=== PATIENT | male | born 1970 | race Caucasian/White ===

== ENCOUNTER 2019-09-19 11:09 | Emergency (ER) | payer BC ==
[2019-09-19] MEDS ORDERED: hydrALAZINE HCL 20 MG/ML 1 ML VIAL IVP STA (11:29)
--- NOTE | 2019-09-19 11:35 | ED ---
General Adult HPI <Inocente Dinero - Last Filed: 09/19/19 13:17> - General Source: patient Mode of arrival: ambulatory Limitations: no limitations <Ifeanyi Hughes - Last Filed: 09/19/19 13:29> - General Chief complaint: Recheck/Abnormal Lab/Rx Stated complaint: Elevated BP Time Seen by Provider: 09/19/19 11:20 - History of Present Illness Initial comments: Patient is a 48-year-old male with history of hypertension is presenting to the emergency department with chief complaint of hypertension. Patient reports 4 days ago he obtained his blood pressure at the pharmacy and it was 260/180. He was advised to see a primary care physician. Patient reports that he does not see a primary care but scheduled appointment and is waiting for his appointment next week. Patient reports today he went to the urgent care and his blood pressure was 280/180 and he was referred to come to the ED for further evaluation. At this time patient denies any shortness of breath, headaches, chest pain, nausea, stomach pain or any blurry vision. Patient reports he was aware of his high blood pressure for the past 3 years however he did not seek any medical attention. Patient states about 3 years. He was seen in the emergency department for elevated blood pressure and was kept overnight but after discharge he never obtain a primary care. Patient is not a smoker. Patient doesn't take any medications. Patient denies one-sided weakness or paresthesias. (Ifeanyi Hughes) - Related Data Previous Rx's Medication Instructions Recorded amLODIPine BESYLATE [Norvasc] 5 mg PO DAILY #20 tablet 09/19/19 Allergies Allergy/AdvReac Type Severity Reaction Status Date / Time No Known Allergies Allergy Verified 09/19/19 11:21 Review of Systems ROS Other: All systems not noted in ROS Statement are negative. <Inocente Dinero - Last Filed: 09/19/19 13:17> ROS Other: All systems not noted in ROS Statement are negative. <Ifeanyi Hughes - Last Filed: 09/19/19 13:29> ROS Statement: Those systems with pertinent positive or pertinent negative responses have been documented in the HPI. Past Medical History Past Medical History: Hypertension History of Any Multi-Drug Resistant Organisms: None Reported Additional Past Surgical History / Comment(s): Lung. Past Psychological History: No Psychological Hx Reported Smoking Status: Never smoker Past Alcohol Use History: Rare Past Drug Use History: Marijuana <Ifeanyi Hughes - Last Filed: 09/19/19 13:29> General Exam Limitations: no limitations General appearance: alert, in no apparent distress Head exam: Present: atraumatic, normocephalic, normal inspection Eye exam: Present: normal appearance, PERRL, EOMI. Absent: other (No optic disc enlargement.) Pupils: Present: normal accommodation ENT exam: Present: normal exam, normal oropharynx, mucous membranes moist, TM's normal bilaterally, normal external ear exam Neck exam: Present: normal inspection, full ROM Respiratory exam: Present: normal lung sounds bilaterally Cardiovascular Exam: Present: regular rate, normal rhythm, normal heart sounds Extremities exam: Present: normal inspection, full ROM, normal capillary refill, other (+2 radial and ulnar pulses bilaterally.). Absent: pedal edema, calf tenderness Back exam: Present: normal inspection, full ROM Neurological exam: Present: alert, oriented X3 Psychiatric exam: Present: normal affect, normal mood Skin exam: Present: warm, intact, normal color <Ifeanyi Hughes - Last Filed: 09/19/19 13:29> Course Vital Signs 09/19/19 09/19/19 09/19/19 11:12 11:36 11:40 Temperature 98 F Pulse Rate 98 89 86 Respiratory 22 23 18 Rate Blood Pressure 256/146 O2 Sat by Pulse 99 97 96 Oximetry 09/19/19 09/19/19 09/19/19 11:50 12:00 12:10 Temperature Pulse Rate 76 81 77 Respiratory 25 H 16 15 Rate Blood Pressure 246/162 246/162 229/143 O2 Sat by Pulse 95 95 96 Oximetry 09/19/19 09/19/19 09/19/19 12:20 12:30 12:40 Temperature Pulse Rate 73 68 71 Respiratory 14 18 28 H Rate Blood Pressure 233/138 233/138 219/145 O2 Sat by Pulse 94 L 94 L 93 L Oximetry 09/19/19 09/19/19 12:50 13:00 Temperature Pulse Rate 70 70 Respiratory 8 L 19 Rate Blood Pressure 206/135 206/135 O2 Sat by Pulse 95 94 L Oximetry EKG Findings - EKG Comments: EKG Findings:: Normal sinus rhythm, left axis deviation, lead 1 and inverted T waves, ST elevation in V2 through V3. <Ifeanyi Hughes - Last Filed: 09/19/19 13:29> Medical Decision Making - Lab Data Result diagrams: 09/19/19 11:36 09/19/19 11:36 <Inocente Dinero - Last Filed: 09/19/19 13:17> - Lab Data Result diagrams: 09/19/19 11:36 09/19/19 11:36 <Ifeanyi Hughes - Last Filed: 09/19/19 13:29> - Medical Decision Making Patient is a 48-year-old male presenting to the emergency department with chief complaint of hypertension. Patient has been aware of his elevated blood pressure, however he has not seek any medical care. Currently patient is completely asymptomatic. EKG does show left axis deviation and some inverted T waves in V1. UA does show +3 protein and some blood. Patient has elevated BUN and creatinine with a GFR of 48. I suspect the decreased renal function to be result of persistent, elevated blood pressure. Patient reports he has an appointment scheduled with Dr. Preciado exactly a week from today. spoke with Dr. Preciado in order to have his appointment moved for tomorrow. Dr. Preciado wanted to admit the patient, however the patient refused and will sign out AMA. Patient will be discharged with [facility] until he is able to evaluated by Dr. Preciado. Strict return parameters were thoroughly discussed with patient was ascending and agreeable. Case discussed physician. (Ifeanyi Hughes) - Lab Data Lab Results 09/19/19 09/19/19 09/19/19 Range/Units 11:36 11:36 11:36 WBC 5.1 (3.8-10.6) k/uL RBC 5.69 (4.30-5.90) m/uL Hgb 16.9 (13.0-17.5) gm/dL Hct 48.3 (39.0-53.0) % MCV 84.8 (80.0-100.0) fL MCH 29.7 (25.0-35.0) pg MCHC 35.0 (31.0-37.0) g/dL RDW 13.5 (11.5-15.5) % Plt Count 194 (150-450) k/uL Neutrophils % 64 % Lymphocytes % 24 % Monocytes % 6 % Eosinophils % 3 % Basophils % 1 % Neutrophils # 3.3 (1.3-7.7) k/uL Lymphocytes # 1.2 (1.0-4.8) k/uL Monocytes # 0.3 (0-1.0) k/uL Eosinophils # 0.2 (0-0.7) k/uL Basophils # 0.1 (0-0.2) k/uL PT (9.0-12.0) sec INR (<1.2) APTT (22.0-30.0) sec Sodium 138 (137-145) mmol/L Potassium 4.1 (3.5-5.1) mmol/L Chloride 104 (98-107) mmol/L Carbon Dioxide 22 (22-30) mmol/L Anion Gap 12 mmol/L BUN 30 H (9-20) mg/dL Creatinine 1.65 H (0.66-1.25) mg/dL Est GFR (CKD-EPI)AfAm 56 (>60 ml/min/1.73 sqM) Est GFR (CKD-EPI)NonAf 48 (>60 ml/min/1.73 sqM) Glucose 93 (74-99) mg/dL Calcium 9.6 (8.4-10.2) mg/dL Magnesium 2.1 (1.6-2.3) mg/dL Total Bilirubin 1.1 (0.2-1.3) mg/dL AST 31 (17-59) U/L ALT 25 (21-72) U/L Alkaline Phosphatase 61 (38-126) U/L Troponin I (0.000-0.034) ng/mL Total Protein 8.2 (6.3-8.2) g/dL Albumin 4.9 (3.5-5.0) g/dL Urine Color Yellow Urine Appearance Clear (Clear) Urine pH 5.5 (5.0-8.0) Ur Specific [place] 1.025 (1.001-1.035) Urine Protein 3+ H (Negative) Urine Glucose (UA) Negative (Negative) Urine Ketones Negative (Negative) Urine Blood Small H (Negative) Urine Nitrite Negative (Negative) Urine Bilirubin Negative (Negative) Urine Urobilinogen <2.0 (<2.0) mg/dL Ur Leukocyte Esterase Negative (Negative) Urine RBC 1 (0-5) /hpf Urine WBC 1 (0-5) /hpf Ur Squamous Epith Cells <1 (0-4) /hpf Hyaline Casts 4 H (0-2) /lpf Urine Mucus Occasional H (None) /hpf 09/19/19 09/19/19 Range/Units 11:36 11:36 WBC (3.8-10.6) k/uL RBC (4.30-5.90) m/uL Hgb (13.0-17.5) gm/dL Hct (39.0-53.0) % MCV (80.0-100.0) fL MCH (25.0-35.0) pg MCHC (31.0-37.0) g/dL RDW (11.5-15.5) % Plt Count (150-450) k/uL Neutrophils % % Lymphocytes % % Monocytes % % Eosinophils % % Basophils % % Neutrophils # (1.3-7.7) k/uL Lymphocytes # (1.0-4.8) k/uL Monocytes # (0-1.0) k/uL Eosinophils # (0-0.7) k/uL Basophils # (0-0.2) k/uL PT 10.6 (9.0-12.0) sec INR 1.0 (<1.2) APTT 27.1 (22.0-30.0) sec Sodium (137-145) mmol/L Potassium (3.5-5.1) mmol/L Chloride (98-107) mmol/L Carbon Dioxide (22-30) mmol/L Anion Gap mmol/L BUN (9-20) mg/dL Creatinine (0.66-1.25) mg/dL Est GFR (CKD-EPI)AfAm (>60 ml/min/1.73 sqM) Est GFR (CKD-EPI)NonAf (>60 ml/min/1.73 sqM) Glucose (74-99) mg/dL Calcium (8.4-10.2) mg/dL Magnesium (1.6-2.3) mg/dL Total Bilirubin (0.2-1.3) mg/dL AST (17-59) U/L ALT (21-72) U/L Alkaline Phosphatase (38-126) U/L Troponin I 0.034 (0.000-0.034) ng/mL Total Protein (6.3-8.2) g/dL Albumin (3.5-5.0) g/dL Urine Color Urine Appearance (Clear) Urine pH (5.0-8.0) Ur Specific [place] (1.001-1.035) Urine Protein (Negative) Urine Glucose (UA) (Negative) Urine Ketones (Negative) Urine Blood (Negative) Urine Nitrite (Negative) Urine Bilirubin (Negative) Urine Urobilinogen (<2.0) mg/dL Ur Leukocyte Esterase (Negative) Urine RBC (0-5) /hpf Urine WBC (0-5) /hpf Ur Squamous Epith Cells (0-4) /hpf Hyaline Casts (0-2) /lpf Urine Mucus (None) /hpf Disposition <Inocente Dinero - Last Filed: 09/19/19 13:17> Is patient prescribed a controlled substance at d/c from ED?: No Time of Disposition: 13:29 <Ifeanyi Hughes - Last Filed: 09/19/19 13:29> Clinical Impression: Hypertension Disposition: Left Against Medical Advice Condition: Stable Instructions (If sedation given, give patient instructions): Heart Healthy Diet (DC), Hypertensive Crisis (ED) Additional Instructions: Please take prescribed medication as directed. Please follow-up with Dr. Preciado. Please return to emergency department if symptoms worsen. Prescriptions: amLODIPine BESYLATE [Norvasc] 5 mg PO DAILY #20 tablet Referrals: Ileana Preciado MD [Primary Care Provider] - 1-2 days
[2019-09-19] MEDS: LABETALOL 5 MG/ML VIAL MDV IVP SCH ×4 (11:59→13:04)
[2019-09-19 12:13] LABS: Appearance,Urine Clear (Clear); Bilirubin,Urine Negative (Negative); Blood,Urine Small (Negative); Color,Urine Yellow; Glucose,Urine (UA) Negative (Negative); Hyaline Casts,Urine 4 /lpf (0-2); Ketones,Urine Negative (Negative); Leukocyte Esterase,Urine Negative (Negative); Mucus,Urine Occasional /hpf; Nitrite,Urine Negative (Negative); PH, Urine 5.5 (5.0-8.0); Partial Thromboplastin Time 27.1 sec (22.0-30.0); Protein,Urine 3+ (Negative); Prothrombin Time 10.6 sec (9.0-12.0); RBC,Urine 1 /hpf (0-5); Specific Gravity,Urine 1.025 (1.001-1.035); Squamous Epithelial Cell,Urine <1 /hpf (0-4); Urobilinogen,Urine <2.0 mg/dL (<2.0); WBC,Urine 1 /hpf (0-5)
[2019-09-19 12:17] LABS: Basophils # (A) 0.1 k/uL (0-0.2); Basophils % (A) 1 %; Eosinophils # (A) 0.2 k/uL (0-0.7); Eosinophils % (A) 3 %; HCT 48.3 % (39.0-53.0); HGB 16.9 gm/dL (13.0-17.5); Lymphocytes # (A) 1.2 k/uL (1.0-4.8); Lymphocytes % (A) 24 %; MCH 29.7 pg (25.0-35.0); MCV 84.8 fL (80.0-100.0); Monocytes # (A) 0.3 k/uL (0-1.0); Monocytes % (A) 6 %; Neutrophils # (A) 3.3 k/uL (1.3-7.7); Neutrophils % (A) 64 %; Platelet Count 194 k/uL (150-450); RBC 5.69 m/uL (4.30-5.90); RDW 13.5 % (11.5-15.5); WBC 5.1 k/uL (3.8-10.6)
[2019-09-19 12:27] LABS: Albumin 4.9 g/dL (3.5-5.0); Calcium 9.6 mg/dL (8.4-10.2); Magnesium 2.1 mg/dL (1.6-2.3); Potassium 4.1 mmol/L (3.5-5.1); Total Bilirubin 1.1 mg/dL (0.2-1.3); Total Protein 8.2 g/dL (6.3-8.2)
[2019-09-19] MEDS ORDERED: cloNIDine HCL 0.1 MG TAB PO STA (13:16)
[2019-09-19 13:50] VITALS: BP 214/149; PULSE 68; RESP 18; TEMP 98.1
== END 2019-09-19 13:30 | disposition left against medical advice (07) ==
LOC: EC 11:09
DX: I10 Essential (primary) hypertension (principal)
CPT/HCPCS: 36415; 80053; 81001; 83735; 84484; 85025; 85610; 85730; 93005; 96374; 99283

== ENCOUNTER 2020-07-13 12:54 | Observation (INO) | payer BC, OTHER ==
--- NOTE | 2020-07-13 13:06 | ED ---
General Adult HPI - General Stated complaint: High BP STEMI Time Seen by Provider: 07/13/20 13:00 Source: patient, RN/MD, EMS, RN notes reviewed, old records reviewed Mode of arrival: EMS Limitations: no limitations - History of Present Illness Initial comments: This is a 49-year-old male who was transferred from [facility] today where he presented for concern for high blood pressure for about a week he had been dealing with a frontal headache some dizziness and low energy levels. He had no chest pain palpitations diaphoresis or nausea he currently was on hydralazine and Norvasc for refractory hypertension. No other current medical history. He did have lung surgery as a child. The patient's troponin was noted to be mildly elevated at 0.043. Patient did have some T-wave inversions that were noted on his EKG with no old one for comparison. He currently is having no chest pain no symptoms at all no headache blurry vision nausea vomiting. He was transferred here for cardiac evaluation. - Related Data Previous Rx's Medication Instructions Recorded amLODIPine BESYLATE [Norvasc] 5 mg PO DAILY #20 tablet 09/19/19 Allergies Allergy/AdvReac Type Severity Reaction Status Date / Time No Known Allergies Allergy Verified 07/13/20 13:02 Review of Systems ROS Statement: Those systems with pertinent positive or pertinent negative responses have been documented in the HPI. ROS Other: All systems not noted in ROS Statement are negative. Past Medical History Past Medical History: Hypertension History of Any Multi-Drug Resistant Organisms: None Reported Additional Past Surgical History / Comment(s): Lung. Past Psychological History: No Psychological Hx Reported Smoking Status: Former smoker Past Alcohol Use History: Rare Past Drug Use History: Marijuana General Exam - General Exam Comments Initial Comments: This is a well-developed well-nourished awake alert oriented times 3 male Limitations: no limitations General appearance: alert, in no apparent distress Head exam: Present: atraumatic, normocephalic, normal inspection Eye exam: Present: normal appearance, PERRL, EOMI. Absent: scleral icterus, conjunctival injection, periorbital swelling ENT exam: Present: normal exam, mucous membranes moist Neck exam: Present: normal inspection. Absent: tenderness, meningismus, lymphadenopathy Respiratory exam: Present: normal lung sounds bilaterally. Absent: respiratory distress, wheezes, rales, rhonchi, stridor Cardiovascular Exam: Present: regular rate, normal rhythm, normal heart sounds. Absent: systolic murmur, diastolic murmur, rubs, gallop, clicks GI/Abdominal exam: Present: soft, normal bowel sounds. Absent: distended, tenderness, guarding, rebound, rigid Extremities exam: Present: normal inspection, full ROM, normal capillary refill. Absent: tenderness, pedal edema, joint swelling, calf tenderness Back exam: Present: normal inspection Neurological exam: Present: alert, oriented X3, CN II-XII intact Psychiatric exam: Present: normal affect, normal mood Skin exam: Present: warm, dry, intact, normal color. Absent: rash Course Vital Signs 07/13/20 12:59 Temperature 98.2 F Pulse Rate 73 Respiratory 18 Rate Blood Pressure 196/117 O2 Sat by Pulse 96 Oximetry EKG Findings - EKG Results: EKG: interpreted by BAY, sinus rhythm (Sinus rhythm at 66. Ago 188 QRS duration 100 QT since QTC 438/459 evidence of left anterior fascicular block LVH nonspecific inferior changes this compares to that presented from [facility] earlier today.) Medical Decision Making - Medical Decision Making Did review the documents sent with the patient. Patient does have T-wave inversions as PVC noted in the lateral leads. Patient will be admitted with cardiology consultation. The case is discussed with Dr. Camacho. Repeat troponin Disposition Clinical Impression: Acute coronary syndrome, Elevated troponin, Hypertension, Acute electrocardiogram changes Disposition: ADMITTED IP TO THIS [facility] Condition: Fair Referrals: Ileana Preciado MD [Primary Care Provider] - 1-2 days
[2020-07-13] MEDS ORDERED: NITROGLYCERIN SL TABS 0.4 MG TAB SUBLINGUAL PRN (13:34)
[2020-07-13] MEDS ORDERED: NITROGLYCERIN OINT 1 INCH/GM PACKET TOPICAL STA (13:37)
[2020-07-13] MEDS ORDERED: HEPARIN SOD,PORK IN 0.45% NACL 25,000 UNIT in 0.45% NACL 1 250ML.BAG IV SCH (13:45)
[2020-07-13] MEDS: SODIUM CHLORIDE 0.9% 1,000 ML IV SCH (14:05)
[2020-07-13] MEDS: NITROGLYCERIN OINT 1 INCH/GM PACKET TOPICAL SCH ×2 (17:34→22:50)
--- NOTE | 2020-07-13 21:01 | P.HPIM ---
History of Present Illness This is a pleasant 49 years old male with past medical history of hypertension. He is a patient of Dr. Preciado. He works as a lab. Patient has been coming from lightheadedness with generalized weakness and no energy whenever he tries to do something he got tired easily, patient was checking his blood pressure by himself and he noticed it is 200+/100+, so he called his primary care doctor Ozzy who referred him to the hospital. I told patient was on Norvasc and hydralazine by his PCP. Patient denies chest pain, no dyspnea, no coughing, no syncope, no palpitation. No abdominal complaints. Patient has been urinating frequently every 1 hour during the night and Lasix during the day He denies a smoking, no alcohol, no illicit On admission his blood pressure was 196/117, currently 167/105. rest of are stable EKG showing normal sinus rhythm at 66 bpm with no significant ST-T changes and LVH. QTC is 459 Review of Systems CONSTITUTIONAL: No fever, no malaise, no fatigue. HEENT: No recent visual problems or hearing problems. Denied any sore throat. CARDIOVASCULAR: No orthopnea, PND, no palpitations, no syncope. PULMONARY: No shortness of breath, no cough, no hemoptysis. GASTROINTESTINAL: No diarrhea, no nausea, no vomiting, no abdominal pain. Normoactive bowel sounds. NEUROLOGICAL: No headaches, no weakness, no numbness. HEMATOLOGICAL: Denies any bleeding or petechiae. GENITOURINARY: Denies any burning micturition, frequency, or urgency. MUSCULOSKELETAL/RHEUMATOLOGICAL: Denies any joint pain, swelling, or any muscle pain. ENDOCRINE: Denies any polyuria or polydipsia. Past Medical History Past Medical History: Hypertension History of Any Multi-Drug Resistant Organisms: None Reported Additional Past Surgical History / Comment(s): Lung 2-3 years old Past Psychological History: No Psychological Hx Reported Smoking Status: Never smoker Past Alcohol Use History: Rare Past Drug Use History: Marijuana - Past Family History Father Family Medical History: Hypertension Mother Additional Family Medical History / Comment(s): , not sure of history Medications and Allergies Home Medications Medication Instructions Recorded Confirmed Type amLODIPine [Norvasc] 10 mg PO DAILY 07/13/20 07/13/20 History hydrALAZINE HCL 25 mg PO TID-W/MEALS 07/13/20 07/13/20 History Allergies Allergy/AdvReac Type Severity Reaction Status Date / Time No Known Allergies Allergy Verified 07/13/20 14:56 Physical Exam Vitals: Vital Signs Temp Pulse Resp BP Pulse Ox 07/13/20 14:30 66 18 167/105 97 07/13/20 14:00 64 18 167/110 98 07/13/20 13:41 68 18 191/109 97 07/13/20 12:59 98.2 F 73 18 196/117 96 Intake and Output 07/13/20 07/13/20 07/13/20 06:59 14:59 22:59 Other: Weight 72.575 kg GENERAL: The patient is alert and oriented x3, not in any acute distress. Well developed, well nourished. HEENT: Pupils are round and equally reacting to light. EOMI. No scleral icterus. No conjunctival pallor. Normocephalic, atraumatic. No pharyngeal erythema. No thyromegaly. CARDIOVASCULAR: S1 and S2 present. No murmurs, rubs, or gallops. PULMONARY: Chest is clear to auscultation, no wheezing or crackles. ABDOMEN: Soft, nontender, nondistended, normoactive bowel sounds. No palpable organomegaly. MUSCULOSKELETAL: No joint swelling or deformity. EXTREMITIES: No cyanosis, clubbing, or pedal edema. NEUROLOGICAL: Gross neurological examination did not reveal any focal deficits. SKIN: No rashes. No petechiae Results Labs: Abnormal Lab Results - Last 24 Hours (Table) 07/13/20 Range/Units 13:46 Troponin I 0.039 H* (0.000-0.034) ng/mL Assessment and Plan Assessment: Elevated troponin, suspicious for cardiac disease. non-STEMI Hypertension, uncontrolled with urgency Generalized weakness and fatigue, secondary to above Plan: this is a pleasant 49 years old male who presents with uncontrolled hypertension and elevated troponin. Continue with heparin drip. Continue with aspirin. Serial troponin, cardiology consult. Continue with beta chacha and Norvasc 5 mg daily increased to twice a day. Also will add Imdur 30 mg daily. Check echocardiogram. Also we will check labs. Check chest x-ray Monitor blood pressure closely We will check urine analysis and hemoglobin A1c Labs and medication were reviewed.. Continue same treatment. Continue with symptomatic treatment. Resume home medication. Monitor lytes and vitals. DVT and GI prophylaxis. Further recommendations of the clinical course of the patient DVT prophylaxis: Subcutaneous heparin GI Prophylaxis: Pepcid Prognosis is guarded
[2020-07-13] MEDS: ISOSORBIDE MONONITRATE ER 30 MG TAB.ER.24H PO SCH (21:50)
[2020-07-13] MEDS: amLODIPine 5 MG TAB PO SCH (21:50)
[2020-07-14 02:21] LABS: Basophils # (A) 0.1 k/uL (0-0.2); Basophils % (A) 3 %; Eosinophils # (A) 0.2 k/uL (0-0.7); Eosinophils % (A) 4 %; HCT 46.7 % (39.0-53.0); HGB 15.5 gm/dL (13.0-17.5); Lymphocytes # (A) 1.7 k/uL (1.0-4.8); Lymphocytes % (A) 33 %; MCH 29.2 pg (25.0-35.0); MCHC 33.3 g/dL (31.0-37.0); MCV 87.9 fL (80.0-100.0); Mean Platelet Volume 7.4; Monocytes # (A) 0.3 k/uL (0-1.0); Monocytes % (A) 5 %; Neutrophils # (A) 2.7 k/uL (1.3-7.7); Neutrophils % (A) 52 %; Platelet Count 185 k/uL (150-450); RBC 5.31 m/uL (4.30-5.90); RDW 13.1 % (11.5-15.5); WBC 5.2 k/uL (3.8-10.6)
[2020-07-14 02:35] LABS: INR 1.1 (<1.2); Prothrombin Time 10.9 sec (9.0-12.0)
[2020-07-14 02:56] LABS: Albumin 3.9 g/dL (3.5-5.0); Bilirubin, Delta 0.2 mg/dL (0.0-0.2); Bilirubin,Unconjugated 0.5 mg/dL (0.0-1.1); Calcium 8.8 mg/dL (8.4-10.2); Magnesium 2.2 mg/dL (1.6-2.3); Potassium 4.1 mmol/L (3.5-5.1); Total Bilirubin 0.7 mg/dL (0.2-1.3); Total Protein 6.3 g/dL (6.3-8.2)
[2020-07-14] MEDS: NITROGLYCERIN OINT 1 INCH/GM PACKET TOPICAL SCH ×3 (05:52→17:11)
--- NOTE | 2020-07-14 06:51 | XR ---
EXAMINATION TYPE: XR chest 2V DATE OF EXAM: 07/14/2020 COMPARISON: Outside chest x-ray from yesterday. HISTORY: Hypertension with lightheadedness. TECHNIQUE: Frontal and lateral views of the chest are obtained. FINDINGS: There is chronic parenchymal change with small to tiny right pleural effusion redemonstrat ed. No suspicious focal airspace opacity or pneumothorax seen bilaterally. The cardiac silhouette si ze remains within normal limits without change in the aortic knob. The osseous structures are intac t. Overlying EKG leads are on current study. IMPRESSION: Chronic parenchymal change with small to tiny right pleural effusion. No significant manjinder nge from one day earlier.
[2020-07-14] MEDS ORDERED: amLODIPine 5 MG TAB PO SCH (09:00)
[2020-07-14] MEDS ORDERED: lisinopriL 5 MG TAB PO SCH (09:00)
[2020-07-14] MEDS: amLODIPine 5 MG TAB PO SCH ×2 (09:02→20:48)
[2020-07-14] MEDS: ISOSORBIDE MONONITRATE ER 30 MG TAB.ER.24H PO SCH (09:02)
[2020-07-14] MEDS: ASPIRIN 325 MG TAB PO SCH (09:02)
--- NOTE | 2020-07-14 11:39 | P.CRDCN ---
History of Present Illness Consult date: 07/14/20 History of present illness: CHIEF COMPLAINT: elevated troponins HISTORY OF PRESENT ILLNESS: 49-year-old male with a history of hypertension who presented to the emergency room after checking his blood pressure home and it was found to be 200s/100s. Patient called his primary care physician who directed the patient to come to the emergency room. Patient states he does not see a rn visiting on an outpatient basis. patient reports his grandma had a history of coronary artery disease with a stent placement when she was in her 70s. Denies any other family cardiac history. Patient reports feeling lightheaded, weak, and having low energy levels recently. He denies any chest pain or shortness of breath. DIAGNOSTICS: EKG reveals sinus rhythm Chest xray chronic parenchymal changes with small to tiny right pleural effusion. Laboratory data: WBC 5.2. Hemoglobin 15.5. Pletal 185. Sodium 140. Potassium 4.1. BUN 25. creatinine 1.24. Magnesium 2.2. troponin 0.039. 0.035. 0.033. Current home cardiac medications include Norvasc 10 mg daily and hydralazine 25 mg 3 times a day. REVIEW OF SYSTEMS: CONSTITUTIONAL: Denies fever or chills. reports weakness and low energy levels at home. HEENT: Denies blurred vision, vision changes, or eye pain. Denies hemoptysis CARDIOVASCULAR: Denies chest pain, orthopnea, PND or palpitations RESPIRATORY: No shortness of breath. GASTROINTESTINAL: Denies abdominal pain. Denies nausea or vomiting. HEMATOLOGIC: Denies bleeding disorders. GENITOURINARY: Denies any blood in urine. SKIN: Denies pruitis. Denies rash. PHYSICAL EXAM: VITAL SIGNS: Reviewed. GENERAL: Well-developed in no acute distress. HEENT: Head is normocephalic. Pupils are equal, round. Sclerae anicteric. Mucous membranes of the mouth are moist. Neck supple. No JVD or thyromegaly LUNGS: Respirations even and unlabored. Lungs essentially clear to auscultation bilaterally. HEART: Regular rate and rhythm. S1 and S2 heard. ABDOMEN: Soft. Nontender. EXTREMITIES: Normal range of motion. No clubbing or cyanosis. Peripheral pulses intact. No lower extremity edema NEUROLOGIC: Awake and alert. Oriented x 3. ASSESSMENT: 1. Hypertension, uncontrolled 2. Elevated troponins PLAN: -Continue Norvasc and hydralazine -Imdur added per internal medicine -Will add lisinopril 5 mg daily for optimal blood pressure control -Obtain 2-D echo to assess cardiac structure and function -Possible stress test versus cardiac catheterization pending echocardiogram results Nurse practitioner note has been reviewed by physician. Signing provider agrees with the documented findings, assessment, and plan of care. Past Medical History Past Medical History: Hypertension History of Any Multi-Drug Resistant Organisms: None Reported Additional Past Surgical History / Comment(s): Lung 2-3 years old Past Psychological History: No Psychological Hx Reported Smoking Status: Never smoker Past Alcohol Use History: Rare Past Drug Use History: Marijuana - Past Family History Father Family Medical History: Hypertension Mother Additional Family Medical History / Comment(s): , not sure of history Medications and Allergies Home Medications Medication Instructions Recorded Confirmed Type amLODIPine [Norvasc] 10 mg PO DAILY 07/13/20 07/13/20 History hydrALAZINE HCL 25 mg PO TID-W/MEALS 07/13/20 07/13/20 History Allergies Allergy/AdvReac Type Severity Reaction Status Date / Time No Known Allergies Allergy Verified 07/13/20 14:56 Physical Exam Vitals: Vital Signs Temp Pulse Pulse Resp BP BP Pulse Ox 07/14/20 11:29 59 L 16 159/95 97 07/14/20 08:00 98.2 F 65 16 204/93 97 07/14/20 03:54 97.9 F 51 L 18 168/92 98 07/14/20 00:00 97.5 F L 54 L 19 182/92 97 07/13/20 20:00 98.2 F 61 19 158/88 97 07/13/20 15:20 98.1 F 69 16 170/107 96 07/13/20 14:30 66 18 167/105 97 07/13/20 14:00 64 18 167/110 98 07/13/20 13:41 68 18 191/109 97 07/13/20 12:59 98.2 F 73 18 196/117 96 Intake and Output 07/13/20 07/14/20 07/14/20 22:59 06:59 14:59 Intake Total 306.341 58.966 Balance 306.341 58.966 Intake: Intake, IV Titration 66.341 58.966 Amount Heparin Sod,Pork in 0.45% 66.341 58.966 NaCl 25,000 unit In 0.45 % NaCl 1 250ml.bag @ 12 UNITS/KG/HR 8.709 mls/hr IV .Q24H [facility] Rx#: [id number] Oral 240 Other: Voiding Method Toilet Toilet Urinal Urinal # Voids 1 1 Weight 74.2 kg 84.5 kg Results 07/14/20 02:06 07/14/20 02:06 Cardiac Enzymes 07/13/20 07/13/20 07/13/20 Range/Units 13:46 16:26 19:49 AST (17-59) U/L Troponin I 0.039 H* 0.035 H* 0.033 (0.000-0.034) ng/mL 07/14/20 Range/Units 02:06 AST 22 (17-59) U/L Troponin I (0.000-0.034) ng/mL Coagulation 07/13/20 07/14/20 07/14/20 Range/Units 19:49 02:06 02:06 PT 10.9 (9.0-12.0) sec APTT 31.3 H 41.2 H (22.0-30.0) sec 07/14/20 Range/Units 09:11 PT (9.0-12.0) sec APTT 49.1 H (22.0-30.0) sec Lipids 07/14/20 Range/Units 02:06 Triglycerides 84 (<150) mg/dL Cholesterol 185 (<200) mg/dL HDL Cholesterol 60 (40-60) mg/dL CBC 07/14/20 Range/Units 02:06 WBC 5.2 (3.8-10.6) k/uL RBC 5.31 (4.30-5.90) m/uL Hgb 15.5 (13.0-17.5) gm/dL Hct 46.7 (39.0-53.0) % Plt Count 185 (150-450) k/uL Comprehensive Metabolic Panel 07/14/20 Range/Units 02:06 Sodium 140 (137-145) mmol/L Potassium 4.1 (3.5-5.1) mmol/L Chloride 106 (98-107) mmol/L Carbon Dioxide 28 (22-30) mmol/L BUN 25 H (9-20) mg/dL Creatinine 1.24 (0.66-1.25) mg/dL Glucose 92 (74-99) mg/dL Calcium 8.8 (8.4-10.2) mg/dL Unconjugated Bilirubin 0.5 (0.0-1.1) mg/dL AST 22 (17-59) U/L ALT 21 (4-49) U/L Alkaline Phosphatase 44 (38-126) U/L Total Protein 6.3 (6.3-8.2) g/dL Albumin 3.9 (3.5-5.0) g/dL Current Medications Generic Name Dose Route Start Last Admin Trade Name Freq PRN Reason Stop Dose Admin Amlodipine Besylate 5 mg 07/13/20 21:00 07/14/20 09:02 Norvasc PO 5 mg BID ROSIE Administration Aspirin 325 mg 07/14/20 09:00 07/14/20 09:02 Aspirin PO 325 mg DAILY ROSIE Administration Sodium Chloride 1,000 mls @ 20 mls/hr 07/13/20 13:45 07/13/20 14:05 Saline 0.9% IV 20 mls/hr .Q24H ROSIE Administration Heparin Sodium/Sodium Chloride 250 mls @ 8.709 mls/hr 07/13/20 13:45 07/14/20 03:07 25,000 unit/ Sodium Chloride IV 17 units/kg/hr .Q24H ROSIE 12.338 mls/hr Titration Protocol 12 UNITS/KG/HR Isosorbide Mononitrate 30 mg 07/13/20 21:00 07/14/20 09:02 Imdur PO 30 mg DAILY ROSIE Administration Lisinopril 5 mg 07/14/20 09:00 07/14/20 09:02 Zestril PO 5 mg DAILY ROSIE Administration Nitroglycerin 0.4 mg 07/13/20 13:34 Nitrostat SUBLINGUAL Q5M PRN Chest Pain Nitroglycerin 1 inch 07/13/20 18:00 07/14/20 05:52 Nitro-Bid Oint TOPICAL Not Given Q6HR ROSIE Intake and Output 07/13/20 07/14/20 07/14/20 22:59 06:59 14:59 Intake Total 306.341 58.966 Balance 306.341 58.966 Intake: Intake, IV Titration 66.341 58.966 Amount Heparin Sod,Pork in 0.45% 66.341 58.966 NaCl 25,000 unit In 0.45 % NaCl 1 250ml.bag @ 12 UNITS/KG/HR 8.709 mls/hr IV .Q24H [facility] Rx#: [id number] Oral 240 Other: Voiding Method Toilet Toilet Urinal Urinal # Voids 1 1 Weight 74.2 kg 84.5 kg 07/14/20 02:06 07/14/20 02:06
[2020-07-14 11:49] LABS: Appearance,Urine Clear (Clear); Bilirubin,Urine Negative (Negative); Blood,Urine Negative (Negative); Color,Urine Yellow; Glucose,Urine (UA) Negative (Negative); Ketones,Urine Negative (Negative); Leukocyte Esterase,Urine Negative (Negative); Nitrite,Urine Negative (Negative); PH, Urine 6.5 (5.0-8.0); Protein,Urine Trace (Negative); Specific Gravity,Urine 1.023 (1.001-1.035); Urobilinogen,Urine <2.0 mg/dL (<2.0)
[2020-07-14] MEDS ORDERED: lisinopriL 5 MG TAB PO STA (12:21)
[2020-07-14] MEDS ORDERED: cloNIDine HCL 0.1 MG TAB PO STA (12:22)
--- NOTE | 2020-07-14 12:30 | ECHOF ---
Referral Reason:elevated troponin MEASUREMENTS -------- HEIGHT: 177.8 cm WEIGHT: 84.4 kg BP: 168/92 RVIDd: 4.2 cm (< 3.3) IVSd: 1.6 cm (0.6 - 1.1) LVIDd: 4.7 cm (3.9 - 5.3) LVPWd: 1.9 cm (0.6 - 1.1) IVSs: 2.4 cm LVIDs: 3.2 cm LVPWs: 2.2 cm LAESV Index (A-L): 43.14 ml/m Ao Diam: 3.6 cm (2.0 - 3.7) AV Cusp: 2.4 cm (1.5 - 2.6) MV EXCURSION: 18.395 mm (> 18.000) MV EF SLOPE: 95 mm/s (70 - 150) EPSS: 0.4 cm MV E Steve: 0.66 m/s MV DecT: 226 ms MV A Steve: 0.71 m/s MV E/A Ratio: 0.93 RAP: 5.00 mmHg RVSP: 28.43 mmHg FINDINGS -------- Sinus rhythm. This was a technically good study. The left ventricular size is normal. There is moderate concentric left ventricular hypertrophy. O verall left ventricular systolic function is normal with, an EF between 55 - 60 %. The diastolic fi lling pattern is normal for the age of the patient 12.78. The right ventricle is severely enlarged. LA is severely dilated >40 ml/m2 The right atrial size is normal. Interatrial and interventricular septum intact. The aortic valve is trileaflet, and appears structurally normal. No aortic stenosis or regurgitation. The mitral valve is normal. There is trace to mild mitral regurgitation. The tricuspid valve appears structurally normal. Mild tricuspid regurgitation present. There is n o evidence of pulmonary hypertension. The right ventricular systolic pressure, as measured by Doppl er, is 28.43mmHg. There is no pulmonic regurgitation present. The aortic root size is normal. The inferior vena cava is mildly dilated. There is no pericardial effusion. CONCLUSIONS -------- 1. There is moderate concentric left ventricular hypertrophy. 2. Overall left ventricular systolic function is normal with, an EF between 55 - 60 %. 3. The diastolic filling pattern is normal for the age of the patient 12.78 4. The right ventricle is severely enlarged. 5. LA is severely dilated >40 ml/m2 6. The aortic valve is trileaflet, and appears structurally normal. No aortic stenosis or regurgitati on. 7. There is trace to mild mitral regurgitation. 8. Mild tricuspid regurgitation present. 9. The inferior vena cava is mildly dilated. DIALYSIS REGISTERED NURSE: Shey Lee RDCS
[2020-07-14 13:26] LABS: Hemoglobin A1C 5.3 % (4.0-6.0)
--- NOTE | 2020-07-14 15:55 | P.PN ---
Subjective Progress Note Date: 07/14/20 Principal diagnosis: This is a pleasant 49 years old male with past medical history of hypertension. He is a patient of Dr. Preciado. He works as a lab. Patient has been coming from lightheadedness with generalized weakness and no energy whenever he tries to do something he got tired easily, patient was checking his blood pressure by himself and he noticed it is 200+/100+, so he called his primary care doctor Ozzy who referred him to the hospital. I told patient was on Norvasc and hydralazine by his PCP. Patient denies chest pain, no dyspnea, no coughing, no syncope, no palpitation. No abdominal complaints. Patient has been urinating frequently every 1 hour during the night and Lasix during the day He denies a smoking, no alcohol, no illicit On admission his blood pressure was 196/117, currently 167/105. rest of are stable EKG showing normal sinus rhythm at 66 bpm with no significant ST-T changes and LVH. QTC is 459 07/14/2020 Patient is seen and evaluated and follow-up currently undergoing an echo. 2-D echo shows overall ventricular systolic function is normal with an EF between 55 and 60% along with a trace to mild mitral regurgitation and mild tricuspid regurgitation present. Scheduled to undergo a stress test although blood pressure continues to be elevated and was rescheduled for tomorrow. Patient currently remains on Norvasc 5 mg twice daily and lisinopril and Imdur was initiated. Patient was given a one-time dose of Catapres. Patient is very anxious and would like to go home and do this as outpatient although currently remains on a heparin drip and had slight elevation in troponins. Cardiology is following. Review of systems: Constitutional: No reports of fatigue, fever, or chills Cardiovascular: No reports of chest pain or palpitations Respiratory: No reports of shortness of breath or cough GI: No reports of nausea, vomiting, or diarrhea : No reports of dysuria or retention Neurovascular: No reports of weakness or numbness All medications have been reviewed Objective - Vital Signs Vital signs: Vital Signs Temp 98.2 F 07/14/20 08:00 Pulse 65 07/14/20 08:00 Resp 16 07/14/20 08:00 BP 204/93 07/14/20 08:00 Pulse Ox 97 07/14/20 08:00 Intake & Output 07/13/20 07/14/20 07/14/20 18:59 06:59 18:59 Intake Total 240 125.307 Balance 240 125.307 Weight 74.2 kg 84.5 kg Intake: Intake, IV Titration 125.307 Amount Heparin Sod,Pork in 0.45% 125.307 NaCl 25,000 unit In 0.45 % NaCl 1 250ml.bag @ 12 UNITS/KG/HR 8.709 mls/hr IV .Q24H [facility] Rx#: [id number] Oral 240 Other: Voiding Method Toilet Urinal # Voids 1 - Exam GENERAL: The patient is alert and oriented x3, not in any acute distress. Well developed, well nourished. Anxious HEENT: Pupils are round and equally reacting to light. EOMI. No scleral icterus. No conjunctival pallor. Normocephalic, atraumatic. No pharyngeal erythema. No thyromegaly. CARDIOVASCULAR: S1 and S2 present. No murmurs, rubs, or gallops. PULMONARY: Chest is clear to auscultation, no wheezing or crackles. ABDOMEN: Soft, nontender, nondistended, normoactive bowel sounds. No palpable organomegaly. MUSCULOSKELETAL: No joint swelling or deformity. EXTREMITIES: No cyanosis, clubbing, or pedal edema. NEUROLOGICAL: Gross neurological examination did not reveal any focal deficits. SKIN: No rashes. No petechiae - Labs CBC & Chem 7: 07/14/20 02:06 07/14/20 02:06 Labs: Abnormal Lab Results - Last 24 Hours (Table) 07/13/20 07/13/20 07/13/20 Range/Units 13:46 16:26 19:49 APTT 31.3 H (22.0-30.0) sec BUN (9-20) mg/dL Troponin I 0.039 H* 0.035 H* (0.000-0.034) ng/mL LDL Cholesterol, Calc (0-99) mg/dL 07/14/20 07/14/20 07/14/20 Range/Units 02:06 02:06 09:11 APTT 41.2 H 49.1 H (22.0-30.0) sec BUN 25 H (9-20) mg/dL Troponin I (0.000-0.034) ng/mL LDL Cholesterol, Calc 108 H (0-99) mg/dL Assessment and Plan Assessment: Elevated troponin, suspicious for cardiac disease. non-STEMI Hypertension, uncontrolled with urgency Generalized weakness and fatigue, secondary to above DVT prophylaxis: Currently on a heparin drip GI prophylaxis: Pepcid Plan: Continue current medications, management, and symptomatic treatment. Continue to monitor blood pressure is multiple medications have been added. Cardiology is following and reschedule the stress test for tomorrow due to hypertension. 2-D echo showed overall left ventricular systolic function is normal with an EF between 55 and 60%. Will repeat a.m. labs. Further recommendations to follow. Possible discharge in 24-48 hours.
[2020-07-14] MEDS: SODIUM CHLORIDE 0.9% 1,000 ML IV SCH (17:11)
[2020-07-15] MEDS: NITROGLYCERIN OINT 1 INCH/GM PACKET TOPICAL SCH ×2 (00:07→06:16)
[2020-07-15] MEDS ORDERED: REGADENOSON 0.4 MG/5 ML SYRINGE IV ONE (07:00)
[2020-07-15] MEDS: ISOSORBIDE MONONITRATE ER 30 MG TAB.ER.24H PO SCH (08:03)
[2020-07-15] MEDS: amLODIPine 5 MG TAB PO SCH ×2 (08:03→20:17)
[2020-07-15] MEDS: lisinopriL 20 MG TAB PO SCH (08:03)
[2020-07-15] MEDS ORDERED: lisinopriL 10 MG TAB PO SCH (09:00)
[2020-07-15] MEDS ORDERED: hydroCHLOROthiazide 25 MG TAB PO SCH (09:00)
--- NOTE | 2020-07-15 11:52 | NM ---
EXAMINATION TYPE: NM stress lexiscan cardiolite DATE OF EXAM: 07/15/2020 COMPARISON: NONE HISTORY: Precordial chest pain and abnormal EKG TECHNIQUE: After the intravenous administration of 10.19 mCi Tc 99m Sestamibi - Cardiolite resting S PECT images acquired 90 minutes post injection. The patient received 0.4mg Lexiscan, 24.3 mCi Tc 99m Sestamibi - Stress images obtained [address] injection FINDINGS: Review of stress and rest SPECT images demonstrates decreased perfusion involving the cardiac apex on stress images. There is fixed defect inferior wall which may be related to remote insult versus atte nuation artifact. Gated analysis shows hypokinesia with an estimated left ventricular ejection fracti on of 40 %. IMPRESSION: decreased perfusion involving the cardiac apex on stress images. There is fixed defect inferior wall which may be related to remote insult versus attenuation artifact.
[2020-07-15] MEDS ORDERED: AMINOPHYLLINE 500 MG/20 ML VIAL IV PRN (12:23)
[2020-07-15] MEDS ORDERED: CAFFEINE CITRATE 60 MG/3 ML VIAL IV PRN (12:23)
[2020-07-15] MEDS ORDERED: SODIUM CHLORIDE 0.9% 1,000 ML in EMPTY BAG 1 BAG IV ONE (12:43)
[2020-07-15] MEDS ORDERED: NITROGLYCERIN SL TABS 0.4 MG TAB SUBLINGUAL PRN (12:43)
[2020-07-15] MEDS ORDERED: ALPRAZolam 0.5 MG TAB PO PRN (12:43)
[2020-07-15] MEDS ORDERED: ALPRAZolam 0.25 MG TAB PO PRN (12:43)
--- NOTE | 2020-07-15 13:41 | P.PN ---
Subjective Progress Note Date: 07/15/20 Principal diagnosis: This is a pleasant 49 years old male with past medical history of hypertension. He is a patient of Dr. Preciado. He works as a lab. Patient has been coming from lightheadedness with generalized weakness and no energy whenever he tries to do something he got tired easily, patient was checking his blood pressure by himself and he noticed it is 200+/100+, so he called his primary care doctor Ozzy who referred him to the hospital. I told patient was on Norvasc and hydralazine by his PCP. Patient denies chest pain, no dyspnea, no coughing, no syncope, no palpitation. No abdominal complaints. Patient has been urinating frequently every 1 hour during the night and Lasix during the day He denies a smoking, no alcohol, no illicit On admission his blood pressure was 196/117, currently 167/105. rest of are stable EKG showing normal sinus rhythm at 66 bpm with no significant ST-T changes and LVH. QTC is 459 07/14/2020 Patient is seen and evaluated and follow-up currently undergoing an echo. 2-D echo shows overall ventricular systolic function is normal with an EF between 55 and 60% along with a trace to mild mitral regurgitation and mild tricuspid regurgitation present. Scheduled to undergo a stress test although blood pressure continues to be elevated and was rescheduled for tomorrow. Patient currently remains on Norvasc 5 mg twice daily and lisinopril and Imdur was initiated. Patient was given a one-time dose of Catapres. Patient is very anxious and would like to go home and do this as outpatient although currently remains on a heparin drip and had slight elevation in troponins. Cardiology is following. Review of systems: Constitutional: No reports of fatigue, fever, or chills Cardiovascular: No reports of chest pain or palpitations Respiratory: No reports of shortness of breath or cough GI: No reports of nausea, vomiting, or diarrhea : No reports of dysuria or retention Neurovascular: No reports of weakness or numbness All medications have been reviewed 07/15/2020 Patient is seen in follow-up currently underwent a stress test showing decreased perfusion involving the cardiac apex on stress images and a fixed defect inferior wall which may be related to remote insult versus attenuation artifact. Cardiology is following closely and planning for cardiac catheterization in the morning. Patient continues to be hypertensive and medication adjustments have been made. Currently patient denies any chest pain or palpitations. Patient is afebrile. No reports of shortness of breath noted. Patient denies any nausea or vomiting and has been resumed on diet. Patient will be nothing by mouth for cardiac catheterization in the morning. Objective - Vital Signs Vital signs: Vital Signs Temp 98.3 F 07/15/20 12:46 Pulse 54 L 07/15/20 12:46 Resp 16 07/15/20 12:46 BP 186/97 07/15/20 12:46 Pulse Ox 97 07/15/20 12:46 Intake & Output 07/14/20 07/15/20 07/15/20 18:59 06:59 18:59 Intake Total 1020 0 Output Total 200 260 Balance 820 -260 Weight 84.1 kg 84.1 kg Intake: Oral 1020 0 Output: Urine 200 260 Other: Voiding Method Toilet Urinal # Voids 2 1 - Exam GENERAL: The patient is alert and oriented x3, not in any acute distress. Well developed, well nourished. Anxious HEENT: Pupils are round and equally reacting to light. EOMI. No scleral icterus. No conjunctival pallor. Normocephalic, atraumatic. No pharyngeal erythema. No thyromegaly. CARDIOVASCULAR: S1 and S2 present. No murmurs, rubs, or gallops. PULMONARY: Chest is clear to auscultation, no wheezing or crackles. ABDOMEN: Soft, nontender, nondistended, normoactive bowel sounds. No palpable organomegaly. MUSCULOSKELETAL: No joint swelling or deformity. EXTREMITIES: No cyanosis, clubbing, or pedal edema. NEUROLOGICAL: Gross neurological examination did not reveal any focal deficits. SKIN: No rashes. No petechiae - Labs CBC & Chem 7: 07/14/20 02:06 07/14/20 02:06 Assessment and Plan Assessment: Elevated troponin, suspicious for cardiac disease. non-STEMI patient underwent a stress test which was abnormal as mentioned previously and will undergo cardiac catheterization in the morning Hypertension, uncontrolled with urgency Generalized weakness and fatigue, secondary to above DVT prophylaxis: Early ambulation GI prophylaxis: Pepcid Plan: Continue current medications, management, and symptomatic treatment. Continue to monitor blood pressure is multiple medications have been added. Cardiology is following and plans for cardiac catheterization in the morning. Further recommendations to follow. Possible discharge in 24-48 hours.
--- NOTE | 2020-07-15 14:05 | EST ---
EXERCISE STRESS AGE: 49 SEX: M HT: 70" WT: 186 lbs. PROTOCOL: Lexiscan Cardiolite STAGE: DURATION OF EXERCISE: HEART RATE REST: 54 BLOOD PRESSURE REST: 182/101 MAXIMUM HEART RATE ACHIEVED: 104 MAXIMUM BLOOD PRESSURE: 213/100 85% MPHR: 145 100% MPHR: 170 METS: INDICATIONS: Abnormal EKG, hypertension CLINICAL INFORMATION: Baseline rhythm is a sinus mechanism, rate of 54, T-wave inversion inferolateral leads, evidence of left ventricle hypertrophy. Baseline blood pressure 182/101 mmHg. Patient received injection of Lexiscan. Electrocardiograph monitoring revealed no evidence of diagnostic ischemic ST deviation. Cardiolite was injected per protocol. CONCLUSION: 1. Nondiagnostic electrocardiograph stress testing. 2. Nuclear images will be reported separately. MMODL / IJN: [id number] /
--- NOTE | 2020-07-15 14:30 | P.PN ---
Subjective Progress Note Date: 07/15/20 CHIEF COMPLAINT: elevated troponins HISTORY OF PRESENT ILLNESS: Patient examined at the bedside. He denies chest pain. Denies shortness of breath. Blood pressure was significantly elevated this morning but did improve with morning antihypertensives. PHYSICAL EXAM: VITAL SIGNS: Reviewed. GENERAL: Well-developed in no acute distress. HEENT: Head is normocephalic. Pupils are equal, round. Sclerae anicteric. Mucous membranes of the mouth are moist. Neck supple. No JVD or thyromegaly LUNGS: Respirations even and unlabored. Lungs essentially clear to auscultation bilaterally. HEART: Regular rate and rhythm. S1 and S2 heard. EXTREMITIES: Normal range of motion. No clubbing or cyanosis. Peripheral pulses intact. No lower extremity edema NEUROLOGIC: Awake and alert. Oriented x 3. ASSESSMENT: 1. Hypertension, uncontrolled 2. Elevated troponins PLAN: -Continue current medications. Hydrochlorothiazide added to medication regimen and lisinopril dosage increase this morning. -Monitor blood pressure -Dr. Jones reviewed stress test. Recommending cardiac cath tomorrow. Patient agreeable. Nurse practitioner note has been reviewed by physician. Signing provider agrees with the documented findings, assessment, and plan of care. Objective - Vital Signs Vital signs: Vital Signs Temp 98.3 F 07/15/20 12:46 Pulse 54 L 07/15/20 12:46 Resp 16 07/15/20 12:46 BP 186/97 07/15/20 12:46 Pulse Ox 97 07/15/20 12:46 Intake & Output 07/14/20 07/15/20 07/15/20 18:59 06:59 18:59 Intake Total 1020 0 Output Total 200 260 Balance 820 -260 Weight 84.1 kg 84.1 kg Intake: Oral 1020 0 Output: Urine 200 260 Other: Voiding Method Toilet Urinal # Voids 2 1 - Labs CBC & Chem 7: 07/14/20 02:06 07/14/20 02:06
[2020-07-15 15:26] LABS: Calcium 9.5 mg/dL (8.4-10.2); Potassium 4.1 mmol/L (3.5-5.1)
[2020-07-15] MEDS: ASPIRIN 325 MG TAB PO SCH (16:39)
[2020-07-16] MEDS ORDERED: ATORVASTATIN 80 MG TAB PO ONE (06:00)
[2020-07-16] MEDS ORDERED: ASPIRIN 325 MG TAB PO ONE (06:00)
[2020-07-16 07:08] LABS: Calcium 9.4 mg/dL (8.4-10.2); Potassium 4.5 mmol/L (3.5-5.1)
[2020-07-16] MEDS: amLODIPine 5 MG TAB PO SCH (08:17)
[2020-07-16] MEDS: ISOSORBIDE MONONITRATE ER 30 MG TAB.ER.24H PO SCH (08:17)
[2020-07-16] MEDS: ASPIRIN 325 MG TAB PO SCH (08:19)
[2020-07-16] MEDS: lisinopriL 20 MG TAB PO SCH (08:22)
[2020-07-16] MEDS ORDERED: hydroCHLOROthiazide 25 MG TAB PO SCH (09:00)
[2020-07-16] MEDS ORDERED: SODIUM CHLORIDE 0.9% 1,000 ML IV ONE (12:11)
[2020-07-16] MEDS ORDERED: MIDAZOLAM 2 MG/2 ML VIAL IV ONE (12:20)
[2020-07-16] MEDS ORDERED: fentaNYL (PF) 50 MCG/ML 2 ML AMP IV ONE (12:23)
[2020-07-16] MEDS ORDERED: LIDOCAINE 1% INJ 10MG/ML (20 ML MDV) SQ ONE ×2 (12:25→12:26)
[2020-07-16] MEDS ORDERED: VERAPAMIL SYRINGE (5 MG/10 ML) INTRAARTER ONE (12:29)
[2020-07-16] MEDS: LABETALOL 5 MG/ML VIAL MDV IV ONE ×2 (12:32→12:39)
[2020-07-16] MEDS ORDERED: IOPAMIDOL-370 125ML BTL INJ ONE (12:50)
[2020-07-16] MEDS ORDERED: RX INFO: IV CONTRAST WAS GIVEN 1 EACH MISC MISCELLANE PRN (12:51)
--- NOTE | 2020-07-16 12:56 | P.CARDCATH ---
Date of Procedure: 07/16/20 Preoperative Diagnosis: Positive stress test, positive troponins Postoperative Diagnosis: Mild coronary artery disease Procedure(s) Performed: Left heart catheterization Description of Procedure: HISTORY: This is a 49-year-old gentleman with history of hypertension was admitted to the hospital with complaints of not feeling well with positive troponin and abnormal EKG. Lexiscan stress test was reported as showing reversible ischemia involving the apex and fixed defect in the inferior wall. Patient is advised to have a cardiac catheterization for definitive diagnosis CONSENT:I have discussed the risks, benefits and alternative therapies for the above-mentioned procedure and for both sedation/analgesia as well as necessary blood product administration, if indicated, as they pertain to this patient. The patient has indicated understanding and acceptance of the risks and procedures discussed. PROCEDURE: Patient was brought to the lab in a fasting state. Patient was given some IV sedation. The right wrist is infiltrated with lidocaine and right radial artery was entered using Seldinger technique. A 6-Latvian catheter was left in place and selective coronary arteriography was performed. Patient tolerated the procedure well. TR band was applied for hemostasis. No immediate complications were noted and patient was transferred to [facility] in a stable condition Conscious Sedation: Versed 1mg Fentanyl 50 g Duration 21minutes HEMODYNAMICS: The aortic pressure is about 160/90. Left ventricle end-diastolic pressure is about 4-8. No gradient across the aortic valve SELECTIVE CORONARY ARTERIOGRAPHY: LEFT MAIN: Normal length and free of occlusive disease THE LEFT ANTERIOR DESCENDING CORONARY ARTERY:. Good caliber vessel giving rise to good-sized diagonal branches. The diagonal branches has 2 divisions and one of them has about 30 to 40% stenosis in the proximal portion. The rest of the vessel appears to be free of occlusive disease THE LEFT CIRCUMFLEX AND IS CORONARY ARTERY:. Good caliber vessel free of occlusive disease THE RIGHT CORONARY ARTERY:. Dominant vessel giving rise to PDA and PLV. Free of occlusive disease LEFT VENTRICULOGRAPHY: Not performed FINAL IMPRESSION:. Mild coronary artery disease involving the diagonal branch. No critical lesions noted PLAN:. Maximal l medical therapy and risk factor modification PROGNOSIS: Fair
[2020-07-16] MEDS ORDERED: SODIUM CHLORIDE 0.9% 1,000 ML IV SCH (13:00)
[2020-07-16 14:36] VITALS: RESP 18
[2020-07-16 15:21] VITALS: TEMP 97.6
[2020-07-16 17:13] VITALS: BP 156/92; PULSE 61
--- NOTE | 2020-07-17 12:51 | P.DS ---
Providers Date of admission: 07/16/20 08:37 Expected date of discharge: 07/16/20 Attending physician: Wilfred Camacho MD Consults: 07/13/20 13:34 Consult Physician Urgent Consulting Provider: Olu Prasad Consult Reason/Comments: Elevated troponin, EKG changes Do you want consulting provider notified?: Yes Primary care physician: Ileana Preciado Hospital Course: Final diagnosis Elevated troponin, suspicious for cardiac disease. non-STEMI Hypertension, uncontrolled with urgency Generalized weakness and fatigue, secondary to above DVT prophylaxis GI prophylaxis Discharge disposition Patient is being discharged in a stable condition with guarded prognosis to home. Patient will follow-up with Dr. Preciado in the outpatient setting upon discharge. Patient also instructed to follow-up with cardiology in the outpatient setting. Total time taken is greater than 35 minutes. History of present illness This is a 49-year-old male who was recently admitted with hypertensive urgency along with some generalized weakness and lightheadedness and was being closely monitored. Patient was seen and evaluated by cardiology and originally underwent an echo showing overall left ventricular systolic function is normal with an EF between 55 and 60%. Patient continue to have hypertension and medication changes were done. Patient underwent a stress test which showed decreased perfusion involving the cardiac apex on stress images along with a fixed deflects inferior wall which may be related to remote insult versus attenuation artifact. Patient then underwent cardiac catheterization showing mild coronary artery disease involving the diagonal branch with no critical lesions noted cardiology recommending maximum medical therapy and risk factor modifications. Patient will be continuing on Norvasc 5 mg twice daily along with Lasix 20 mg daily and lisinopril 20 mg daily and a daily aspirin and will be following up with cardiology in the outpatient setting. Patient also instructed to continue to monitor blood pressure and keep a diary for primary care follow-up. Patient to continue with a low-salt heart healthy diet. Currently no reports of chest pain, shortness of breath, or palpitations. Patient is afebrile. No reports of nausea or vomiting and patient is tolerating diet. Patient will be discharged home today. On exam vital signs are stable. Temp is 97.6 F, pulse is 61, respirations are 18, blood pressure is 156/92, oxygen saturation is 95% on room air. Cardio S1, S2 are muffled. Respiratory system shows diminished breath sounds at the bases with no wheezing or rhonchi noted. Abdomen is soft and nontender. Nervous system shows no focal deficits. Please refer to medication reconciliation sheet for a list of medications. Patient Condition at Discharge: Fair Plan - Discharge Summary Discharge Rx Participant: Yes New Discharge Prescriptions: New Isosorbide Mononitrate ER [Imdur] 30 mg PO DAILY 30 Days #30 tab.er.24h Nitroglycerin Sl Tabs [Nitrostat] 0.4 mg SUBLINGUAL Q5M PRN #30 tab PRN Reason: Chest Pain amLODIPine [Norvasc] 5 mg PO BID 30 Days #60 tab lisinopriL [Zestril] 20 mg PO DAILY 30 Days #30 tab Aspirin 81 mg PO DAILY 30 Days #30 chewable Furosemide [Lasix] 20 mg PO DAILY 30 Days #30 tab Discontinued amLODIPine [Norvasc] 10 mg PO DAILY hydrALAZINE HCL 25 mg PO TID-W/MEALS Discharge Medication List Isosorbide Mononitrate ER [Imdur] 30 mg PO DAILY 30 Days #30 tab.er.24h 07/15/20 [Rx] Nitroglycerin Sl Tabs [Nitrostat] 0.4 mg SUBLINGUAL Q5M PRN #30 tab 07/15/20 [Rx] amLODIPine [Norvasc] 5 mg PO BID 30 Days #60 tab 07/15/20 [Rx] lisinopriL [Zestril] 20 mg PO DAILY 30 Days #30 tab 07/15/20 [Rx] Aspirin 81 mg PO DAILY 30 Days #30 chewable 07/16/20 [Rx] Furosemide [Lasix] 20 mg PO DAILY 30 Days #30 tab 07/16/20 [Rx] Follow up Appointment(s)/Referral(s): Ileana Preciado MD [Primary Care Provider] - 1-2 days (Pt to make appointment as the office is closed at time of discharge. Please notify the office that the appointment is a follow up from the hospital.) Blane Jones MD [STAFF PHYSICIAN] - 1 Week (Pt to make appointment as the office is closed at time of discharge. Please notify the office that the jeff ointment is a follow up from the hospital after a cardiac catheterization.) Patient Instructions/Handouts: *Surgery [facility] - After Heart Catheterization - [employer]ug [employer] Instructions Activity/Diet/Wound Care/Special Instructions: Activity Limited until follow-up Follow-up with primary care provider upon discharge Follow up with cardiology in the outpatient setting Continue current diet, and low-salt diet Continue to monitor blood pressure and keep a diary for primary care follow-up Discharge Disposition: HOME SELF-CARE
--- NOTE | 2020-07-23 07:34 | CDI ---
Documentation Clarification Form Date: 07/23/20 From: Zeenat Olivas CCS Phone: If you have a question about this query, please contact Thelma Munroe, Solar Energy Consultant And Designer at [phone] between 8am and 5pm. Admit Date: 07/16/20 Discharge Date:07/16/20 Patient Name: Michael Tenorio Visit Number: [id number] ATTENTION: The Clinical Documentation Specialists (CDI) and [facility] Coding Staff appreciate your assistance in clarifying documentation. Please respond to the clarification below the line at the bottom and electronically sign. The CDI & [facility] Coding staff will review the response and follow-up if needed. Please note: Queries are made part of the Legal Health Record. If you have any questions, please contact the author of this message via ITS. Dear Dr. Camacho, Conflicting documentation has been found in the medical record: H&P and DS document: Elevated troponin, suspicious for cardiac disease. non- STEMI PNs 07/15 document: ASSESSMENT: 1.Hypertension, uncontrolled 2.Elevated troponins Cath documents: FINAL IMPRESSION:.Mild coronary artery disease involving the diagonal branch. No critical lesions noted PLAN:.Maximal l medical therapy and risk factor modification History/Risk Factors: HTN w/ urgency, Valve disease, Mild CAD Clinical Indicators: Elevated troponin Labs: Troponin 0.039, 0.035, 0.033 Treatment: Aspirin 325 mg PO Daily, Imdur 30 mg PO Daily, Zestril 20 mg PO Daily, Heparin 4,000 unit IV STK-MED Consult: Karen In your opinion, what is the most clinically appropriate diagnosis for this patient? NSTEMI Type II [place] due to Hypertensive urgency Elevated troponin CAD with angina Other explanation of clinical findings Unable to determine (no explanation for clinical findings) Type II W[place] due to Hypertensive urgency MTDD
== END 2020-07-16 19:00 | disposition home or self-care (01) ==
LOC: EC 12:54 → 3SCARD 13:34 → OBSVTOIN 07-16 08:37 → INTOOBSV 07-16 08:37 → UNDODISIN 07-16 19:00
PROVIDERS: ADMIT Internal Medicine; ATTEND Internal Medicine
DX: I16.0 Hypertensive urgency (principal); I21.A1 Myocardial infarction type 2; I25.10 Atherosclerotic heart disease of native coronary artery without angina pectoris; I10 Essential (primary) hypertension; I44.4 Left anterior fascicular block; I49.3 Ventricular premature depolarization; R94.39 Abnormal result of other cardiovascular function study; J90 Pleural effusion, not elsewhere classified; I08.1 Rheumatic disorders of both mitral and tricuspid valves; R94.31 Abnormal electrocardiogram [ECG] [EKG]; Z98.890 Other specified postprocedural states; Z87.891 Personal history of nicotine dependence; Z82.49 Family history of ischemic heart disease and other diseases of the circulatory system; Z79.899 Other long term (current) drug therapy
CPT/HCPCS: 96366 ×2; 93005 ×2; 96365; 99285; 36415; 93017; 93306; 93458; 80061; 80048 ×3; 80076; 83735; 84484; 85025; 85610; 85730 ×2; 81003; 83036; 71046; 78452; G0378 ×4; C1769; C1894; A9500; J2250; J2001; J3010; J2785; J1644 ×2; Q9967